=== PATIENT | male | born 1970 | race Caucasian/White ===

== ENCOUNTER 2020-04-13 17:17 | Inpatient (IN) | payer OTHER ==
[~2020-04-13] VITALS: Ht 172.7 cm; Wt 68.0 kg
[2020-04-13 17:18] VITALS: BP 159/100
[2020-04-13] MEDS ORDERED: OXYCARBAZEPINE (17:22)
[2020-04-13] MEDS ORDERED: HIGH BLOOD PRESSURE (17:22)
[2020-04-13 18:46] LABS: HEMATOCRIT 45.2 % (42.0-52.0); HEMOGLOBIN 14.9 gm/dL (14.0-18.0); MCH 30.3 pg (26.0-34.0); MCHC 33.1 g/dL (28.0-37.0); MCV 91.8 fL (80.0-100.0); MPV 7.9 fl. (7.2-11.1); NUCLEATED RBCS 0 /100WBC; PLATELET COUNT* 385 thou/uL (150-400); RBC 4.93 mil/uL (4.50-6.00); RDW-CV 13.2 % (10.5-14.5); WBC 23.4 thou/uL (4.0-11.0)
[2020-04-13 18:57] LABS: CALCIUM 9.1 mg/dL (8.5-10.1); CREATININE 0.8 mg/dL (0.6-1.3); POTASSIUM 3.4 mmol/L (3.5-5.1)
[2020-04-13 19:01] LABS: ALBUMIN 4.4 g/dL (3.4-5.0); TOTAL PROTEIN 8.4 g/dL (6.4-8.2)
[2020-04-13 19:11] LABS: ABSOLUTE LYMPHOCYTES 2.3 thou/uL (0.8-5.3); ABSOLUTE MONOCYTES 0.9 thou/uL (0.0-1.2); ABSOLUTE NEUTROPHILS 20.1 thou/uL (1.6-8.1); ATYPICAL LYMPHS 5 %; PLATELET ESTIMATE ADEQUATE
[2020-04-14 02:00] VITALS: BP 168/106
[2020-04-14 06:00] VITALS: BP 136/84
[2020-04-14 11:09] VITALS: BP 160/99
[2020-04-14] MEDS ORDERED: CIPRO500 M1 PO (12:14)
[2020-04-14] MEDS ORDERED: FLAGYL500 M1 PO (12:14)
--- NOTE | 2020-04-14 16:36 | EKG ---
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
== END 2020-04-14 12:15 | disposition left against medical advice (07) | DRG 371 ==
LOC: M.ERS 17:17 → M.TBA-ER 21:43
PROVIDERS: Nurse Practitioner Family; ADMIT Internal Medicine; ATTEND Internal Medicine
DX: A04.9 Bacterial intestinal infection, unspecified (principal); K55.039 Acute (reversible) ischemia of large intestine, extent unspecified; R65.10 Systemic inflammatory response syndrome (SIRS) of non-infectious origin without acute organ dysfunction; I10 Essential (primary) hypertension; J44.9 Chronic obstructive pulmonary disease, unspecified; F31.9 Bipolar disorder, unspecified; F17.210 Nicotine dependence, cigarettes, uncomplicated; Z20.828 Contact with and (suspected) exposure to other viral communicable diseases; Z79.899 Other long term (current) drug therapy